=== PATIENT | male | born 1980 ===

== ENCOUNTER 2024-06-04 13:53 | Outpatient (REF) | payer MEDICAID, SELFPAY | END 2024-06-04 13:54 | disposition home or self-care (01) | LOC: HO.HOSX 13:53 | DX: Z13.89 Encounter for screening for other disorder (principal) ==

== ENCOUNTER 2024-06-19 19:30 | Outpatient (REF) | payer MEDICAID, SELFPAY | END 2024-06-19 19:31 | disposition home or self-care (01) | LOC: HO.HOSX 19:30 | DX: Z13.89 Encounter for screening for other disorder (principal) ==